=== PATIENT | male | born 1970 | race Two or more races ===

== ENCOUNTER 2019-03-16 16:48 | Emergency (ER) | payer SELFPAY ==
--- NOTE | 2019-03-16 17:00 | NUR ---
NO ANSWER X 1
--- NOTE | 2019-03-16 17:06 | NUR ---
CALLED PATIENT NO ANSWER
--- NOTE | 2019-03-16 17:21 | NUR ---
NA x 3
== END 2019-03-16 17:27 | disposition left against medical advice (07) ==
LOC: ED 17:00
DX: R06.89 Other abnormalities of breathing (principal); Z53.21 Procedure and treatment not carried out due to patient leaving prior to being seen by health care provider

== ENCOUNTER 2019-07-07 20:58 | Emergency (ER) | payer MEDICAID ==
[~2019-07-07] VITALS: Ht 167.6 cm; Wt 100.0 kg
[2019-07-07 21:13] VITALS: BP 173/108
[2019-07-07 22:38] LABS: ALANINE AMINOTRANSFERASE 40 U/L (12-78); ALBUMIN 3.2 g/dL (3.4-5.0); ANION GAP 3 mmol/L (5-15); CALCIUM 8.4 mg/dL (8.5-10.1); CHLORIDE 111 mmol/L (98-107); CREATININE 0.86 mg/dL (0.7-1.3)
[2019-07-07 22:42] LABS: ALKALINE PHOSPHATASE 83 U/L (45-117); BILIRUBIN,TOTAL 0.2 mg/dL (0.2-1.0); TOTAL PROTEIN 7.2 g/dL (6.4-8.2); TROPONIN I < 0.015 ng/mL (0.000-0.045)
[2019-07-07 22:43] LABS: MEAN CORPUSCULAR HEMOGLOBIN 18.8 pg (27.5-34.5); MEAN CORPUSCULAR HGB CONC 30.2 g/dL (33.2-36.2); MEAN CORPUSCULAR VOLUME 62.2 fL (81-97); MEAN PLATELET VOLUME 7.4 fL (7.4-10.4); PLATELET COUNT 446 x10^3/uL (130-400); RED BLOOD COUNT 4.57 x10^6/uL (4.38-5.82); RED CELL DISTRIBUTION WIDTH 18.8 % (9.4-14.8)
[2019-07-07 23:25] LABS: MD YES
[2019-07-07 23:27] LABS: <PLATELET ESTIMATE> INCREASED; <PLT MORPHOLOGY> NORMAL PLT MORPH; ANISOCYTOSIS 1+; EOS#(MANUAL) 0.16 x10^3/uL (0.0-0.4); EOS% (MANUAL) 2 % (1-7); LYMPH#(MANUAL) 2.43 x10^3/uL (1-3.4); LYMPHS% (MANUAL) 30 % (22-44); MONOS#(MANUAL) 0.49 x10^3/uL (0.3-2.7); MONOS% (MANUAL) 6 % (2-9); SEG#(MANUAL) 5.02 x10^3/uL (1.8-6.8); SEGS% (MANUAL) 62 % (42-75)
[2019-07-07] MEDS ORDERED: PLEASE ENTER ALLERGIES MC SCH (23:45)
[2019-07-08] MEDS ORDERED: PANTOPRAZOLE 20MG TABLET PO ONE ×2
[2019-07-08] MEDS ORDERED: ACETAMINOPHEN 500 MG TABLET PO ONE
[2019-07-08] MEDS ORDERED: PANTOPRAZOLE 20MG TABLET ONE (00:14)
[2019-07-08] MEDS ORDERED: ACETAMINOPHEN 500 MG TABLET ONE (00:15)
== END 2019-07-08 00:37 | disposition home or self-care (01) ==
LOC: ED 07-08
DX: K21.9 Gastro-esophageal reflux disease without esophagitis (principal); D53.9 Nutritional anemia, unspecified; K27.3 Acute peptic ulcer, site unspecified, without hemorrhage or perforation; R10.13 Epigastric pain; R10.11 Right upper quadrant pain; R07.89 Other chest pain; Z90.49 Acquired absence of other specified parts of digestive tract
CPT/HCPCS: 36415; 71045; 80053; 83690; 84484; 85025; 93005; 99285